=== PATIENT | female | born 1950 | race Caucasian/White ===

== ENCOUNTER 2021-11-05 19:41 | Emergency (ER) | payer MEDICARE, OTHER ==
[2021-11-05] MEDS ORDERED: Lidocaine/Prilocaine 2.5-2.5% Crm 5 GM Tube TOP ONE (20:23)
[2021-11-05] MEDS ORDERED: Lidocaine/Prilocaine 2.5-2.5% Crm 5 GM Tube ONE (20:24)
[2021-11-05] MEDS ORDERED: HYDROmorphone 1 MG/ML Syringe IVPUSH ONE (20:34)
[2021-11-05] MEDS ORDERED: Ondansetron 4 MG/2 ML SDV IVPUSH ONE (20:34)
[2021-11-05 21:22] LABS: CHLORIDE,CL 100 mmol/L (98-107); SODIUM,NA 136 mmol/L (136-145)
[2021-11-06] MEDS ORDERED: Calcium Carbonate 500 MG Tab.Chew PO ONE (00:14)
[2021-11-06] MEDS ORDERED: Iopamidol 612 MG/ML 100 ML Bottle IVPUSH ONE (06:48)
== END 2021-11-06 00:50 | disposition home or self-care (01) ==
LOC: DL.ED 19:41
DX: K63.89 Other specified diseases of intestine (principal); K86.9 Disease of pancreas, unspecified; J98.4 Other disorders of lung; Z88.0 Allergy status to penicillin; Z88.5 Allergy status to narcotic agent; Z88.1 Allergy status to other antibiotic agents; Z87.891 Personal history of nicotine dependence
CPT/HCPCS: 36415; 74019; 74177; 80053; 81001; 82150; 83605; 83690; 85025; 86140; 96374; 96375; 99284; A9270; J1170; J2405; Q9967